=== PATIENT | male | born 1995 | race Caucasian/White ===

== ENCOUNTER 2017-02-12 14:30 | Day surgery (SDC) | payer MEDICAID, OTHER ==
[~2017-02-12] VITALS: Ht 180.3 cm; Wt 115.0 kg
[~2017-02-12 14:30] MED LIST: LACTATED RINGER'S 1000 ML INJ 1,000 ML IV ONE; ONDANSETRON HCL 4 MG/2 ML VIAL IV PUSH ONE; PROPOFOL 200 MG/20 ML AMP IV ONE
[2017-02-12 14:43] VITALS: BP 13/105; PULSE 99; RESP 22; TEMP 98.3; O2SAT 98
[2017-02-12] MEDS ORDERED: BUPIVACAINE HCL PF 0.5% 10 ML VIAL INFIL ONE (15:00)
[2017-02-12 15:04] VITALS: BP 150/82; PULSE 108; RESP 22; O2SAT 97
--- NOTE | 2017-02-12 15:22 | PD ---
HPI Chief Complaint: Injury Time Seen by Provider: 14:49 Travel History International Travel<30 days: No Contact w/Intl Traveler<30days: No Traveled to known affect area: No History of Present Illness HPI This patient was working with a circular saw and amputated his left index finger one hour ago. He has severe pain in the region. No alleviating factors. He received morphine in route which did not help his pain. Duration 1 hour PFSH Past Medical History ADHD: Yes (HX WITH HBS NO MEDS ) Autoimmune Disease: No Blood Disorders: No Anxiety: No Depression: No Cardiovascular Problems: No Diminished Hearing: No Gastrointestinal Disorders: No Genitourinary: No Musculoskeletal: No Neurologic: No Psychiatric: No Respiratory: No Immunizations Current: Yes Sickle Cell Disease: No Past Surgical History Abdominal Surgery: No Cardiac Surgery: No Ear Surgery: No Endocrine Surgery: No Eye Surgery: No Genitourinary Surgery: No Neurologic Surgery: No Oral Surgery: No Thoracic Surgery: No Other Surgery: No Social History Alcohol Use: No (denies) Tobacco Use: Yes (1/2 PDD) Substance Use: No (denies) Allergies-Medications (Allergen,Severity, Reaction): Coded Allergies: No Known Allergies (Verified , 02/12/17) Reported Meds & Prescriptions Reported Meds & Active Scripts Active No Active Prescriptions or Reported Medications Review of Systems General / Constitutional: No: Fever Eyes: No: Visual changes HENT: No: Headaches Cardiovascular: No: Chest Pain or Discomfort Respiratory: No: Shortness of Breath Gastrointestinal: No: Abdominal Pain Genitourinary: No: Dysuria Musculoskeletal: Positive: Pain Skin: No Rash Neurologic: No: Weakness Psychiatric: No: Depression Endocrine: No: Polydipsia Hematologic/Lymphatic: No: Easy Bruising Physical Exam Narrative GENERAL: Well-nourished, well-developed patient with left finger pain and anxiety . SKIN: Focused skin assessment reveals no rash and nodules. Skin is Warm and dry. HEAD: Atraumatic. Normocephalic. EYES: Pupils equal and round. No scleral icterus. No injection or drainage. ENT: No nasal bleeding or discharge. Mucous membranes pink and moist. NECK: Trachea midline. No JVD. CARDIOVASCULAR: Regular rate and rhythm. No murmur appreciated. RESPIRATORY: No accessory muscle use. Clear to auscultation. Breath sounds equal bilaterally. GASTROINTESTINAL: Abdomen soft, non-tender, nondistended. Hepatic and splenic margins not palpable. MUSCULOSKELETAL: Patient has traumatic Dictation of the left index finger. Chest proximal to the PIP joint. It is that an oblique angle with exposed bone. There is a arterial injury with some spurting of blood that is easily controlled with some pressure. No clubbing. No cyanosis. No edema. NEUROLOGICAL: Awake and alert. No obvious cranial nerve deficits. Motor grossly within normal limits. Normal speech. PSYCHIATRIC: Appropriate mood and affect; insight and judgment normal. Data Data Last Documented VS Vital Signs Date Time Temp Pulse Resp B/P Pulse Ox O2 Delivery O2 Flow Rate FiO2 02/12/17 15:04 108 22 97 Room Air 02/12/17 15:04 150/82 02/12/17 14:43 98.3 Orders Bupivacaine Pf 0.5% Inj (Marcaine Pf 0.5 (02/12/17 15:00) Finger (Fsp3vme) (02/12/17 ) Iv Access Insert/Monitor (02/12/17 15:02) Complete Blood Count With Diff (02/12/17 15:02) Basic Metabolic Panel (Bmp) (02/12/17 15:02) Prothrombin Time / Inr (Pt) (02/12/17 15:02) Act Partial Throm Time (Ptt) (02/12/17 15:02) Cefazolin 2 Gm Premix (Ancef 2 Gm Premix (02/12/17 15:30) Admit Order (Ed Use Only) (02/12/17 17:08) Labs Laboratory Tests Test 02/12/17 15:30 White Blood Count 10.3 TH/MM3 Red Blood Count 5.16 MIL/MM3 Hemoglobin 15.4 GM/DL Hematocrit 44.5 % Mean Corpuscular Volume 86.3 FL Mean Corpuscular Hemoglobin 29.8 PG Mean Corpuscular Hemoglobin 34.5 % Concent Red Cell Distribution Width 12.4 % Platelet Count 226 TH/MM3 Mean Platelet Volume 9.5 FL Neutrophils (%) (Auto) 73.9 % Lymphocytes (%) (Auto) 17.8 % Monocytes (%) (Auto) 7.1 % Eosinophils (%) (Auto) 0.8 % Basophils (%) (Auto) 0.4 % Neutrophils # (Auto) 7.6 TH/MM3 Lymphocytes # (Auto) 1.8 TH/MM3 Monocytes # (Auto) 0.7 TH/MM3 Eosinophils # (Auto) 0.1 TH/MM3 Basophils # (Auto) 0.0 TH/MM3 CBC Comment DIFF FINAL Differential Comment Prothrombin Time 10.0 SEC Prothromb Time International 0.9 RATIO Ratio Activated Partial 23.1 SEC Thromboplast Time Sodium Level 141 MEQ/L Potassium Level 3.8 MEQ/L Chloride Level 108 MEQ/L Carbon Dioxide Level 25.4 MEQ/L Anion Gap 8 MEQ/L Blood Urea Nitrogen 11 MG/DL Creatinine 0.82 MG/DL Estimat Glomerular Filtration 120 ML/MIN Rate Random Glucose 103 MG/DL Calcium Level 9.1 MG/DL [facility] Medical Decision Making Medical Screen Exam Complete: Yes Emergency Medical Condition: Yes Medical Record Reviewed: Yes Differential Diagnosis Amputation, laceration, soft tissue loss Narrative Course I have reviewed the patient's electronic medical record. IV placed CBC is normal Metabolic profile is normal Coagulation studies are normal This patient has a traumatic amputation left index finger at the PIP joint. I injected 3 cc of 0.5% Marcaine in a digital block to help control his pain. I reviewed his left hand x-ray showing a oblique fracture which is open I discussed with hand surgeon Dr. Aparicio who is now driving in to take care of this patient. I gave him 2 g IV Ancef Patient be taken to operating room and plan is for discharge later today Diagnosis Primary Impression: Amputation of finger of left hand Qualified Code: S68.119A - Amputation of finger of left hand, initial encounter Admitting Information Admitting Physician Requests: Admit Scripts No Active Prescriptions or Reported Meds Andrzej Brooks MD Feb 12, 2017 15:22
[2017-02-12] MEDS ORDERED: ceFAZolin 2 GM PREMIX 50 ML IV ONE (15:30)
--- NOTE | 2017-02-12 15:44 | RADRPT ---
EXAM DATE/TIME: 02/12/2017 15:11 [place] COMPARISON: No previous studies available for comparison. INDICATIONS : Left hand, 2nd digit laceration after cut with saw. MEDICAL HISTORY : None. SURGICAL HISTORY : None. ENCOUNTER: Initial ACUITY: 1 day PAIN SCORE: 10/10 LOCATION: Left hand, 2nd digit. FINDINGS: There is amputation of the 2nd digit at the level of the proximal metaphysis of the middle phalanx. There are several small ossific fragments at the site of the amputation. The proximal phalanx is int act. No metallic foreign bodies seen. There is prominent gauze about the 2nd digit. Angiocath in t he dorsum of the hand. CONCLUSION: Amputation 2nd digit at the level of the proximal metaphysis middle phalanx with some adjacent commin uted fragments. Chucky Tay MD on February 12, 2017 at 15:41 Board Certified Radiologist. This report was verified electronically.
[2017-02-12 15:47] LABS: AUTOMATED NEUTROPHIL # 7.6 TH/MM3 (1.8-7.7); BASOPHIL % 0.4 % (0.0-2.0); EOSINOPHIL # 0.1 TH/MM3 (0-0.4); EOSINOPHIL % 0.8 % (0.0-4.0); HEMATOCRIT 44.5 % (39.0-51.0); HEMO FLAGS DIFF FINAL; LYMPH % 17.8 % (9.0-44.0); LYMPHOCYTE # 1.8 TH/MM3 (1.0-4.8); MEAN CELL VOLUME 86.3 FL (80.0-100.0); MEAN CORPUSCULAR HEMOGLOBIN 29.8 PG (27.0-34.0); MEAN CORPUSCULAR HGB CONC 34.5 % (32.0-36.0); MONO % 7.1 % (0.0-8.0); NEUT % 73.9 % (16.0-70.0); PLATELET COUNT 226 TH/MM3 (150-450); RED BLOOD COUNT 5.16 MIL/MM3 (4.50-5.90); RED CELL DISTRIBUTION WIDTH 12.4 % (11.6-17.2); WHITE BLOOD COUNT 10.3 TH/MM3 (4.0-11.0)
[2017-02-12 15:59] LABS: APTT (PATIENT) 23.1 SEC (24.3-30.1); INTERNATIONAL NORMALIZED RATIO 0.9 RATIO
[2017-02-12 16:26] LABS: BICARBONATE 25.4 MEQ/L (21.0-32.0); POTASSIUM 3.8 MEQ/L (3.5-5.1)
[2017-02-12] MEDS ORDERED: LIDOCAINE HCL 2% 50 ML VIAL ONE (17:28)
[2017-02-12] MEDS ORDERED: BUPIVACAINE HCL PF 0.5% 30 ML VIAL ONE (17:28)
[2017-02-12] MEDS ORDERED: BACITRACIN TOP OINT 15 GM TUBE ONE (17:28)
--- NOTE | 2017-02-12 19:07 | MB ---
cc: NICHOLE ECKERT III, M.D. DATE OF CONSULTATION: 02/12/2017 REASON FOR CONSULTATION: HISTORY OF PRESENT ILLNESS: The patient is a 22 year-old right hand-dominant male was working with a circular saw and amputated his left index finger near the PIP joint at a significant angle. He does smoke. PAST MEDICAL HISTORY: ADHD. PAST SURGICAL HISTORY: Closed reduction of his left wrist. SOCIAL HISTORY: He does smoke cigarettes. ALLERGIES: NO KNOWN DRUG ALLERGIES. MEDICATIONS: Denied REVIEW OF SYSTEMS: The patient is not complaining of any fever or chills. He does not complain of any headaches, double or blurry vision. He does not complain of any chest pain or palpations. He does not complain of any coughing, wheezing or shortness of breath. He does not complain of any abdominal pain, nausea or vomiting. He does not complain of any burning, frequency or urgency with urination. He does not complain of any skin lesions, rashes or eruptions. He does not complain of any weakness or loss of balance. He does not complain of any anxiety, depression or any suicidal ideation. He does not complain of any night sweats, fever or chills. X-RAYS: X-rays performed in the hospital today and these reveal amputation of the second digit at the level of the proximal metaphysis middle phalanx with some adjacent comminuted fragments. PHYSICAL EXAMINATION: The patient is well developed, well nourished in mild distress. VITAL SIGNS: Temperature is 98.3, blood pressure 150/82, heart rate is 108, pulse ox 97% on room air. LABORATORY DATA: Hemoglobin 15.4, platelet count 226,000. Coags are normal. BUN and creatinine is 11 and 0.82. He is lying in bed comfortable with his left hand bandaged. EXTREMITIES: Examination of the left hand reveals an oblique amputation to the index finger and ulnar to radial direction with radial pulsatile digital vessel that is easily controlled. The wound is approximately 3 cm in length. There is another laceration on the dorsal aspect of the left middle finger and he does have sensation to all surfaces of the middle finger and is able to flex and extend. There is no bleeding there. Capillary refill is less than 2 seconds in all other fingertips. IMPRESSION: Left index finger traumatic partial amputation. Left middle finger laceration. PLAN: The plan is to go emergently to the operating room for washout, debridement and closure. I discussed at length with the patient and his brother how reimplantation is not possible, nor is it recommended and they appear to understand. We discussed this at length. He understands he will have a shorter finger and he is not supposed to return to work until he is cleared. They understand and agree, and wish to proceed. They request that we do so. MD DARYL Maradiaga III/EDGAR /4:37 PM /6:51 PM
--- NOTE | 2017-02-12 19:12 | HHI.PR ---
Immediate Post Op Note Procedure Date: Feb 12, 2017 Pre Op Diagnosis: (1) Amputation of finger of left hand (2) Laceration of finger of left hand Post Op Diagnosis: (1) Amputation of finger of left hand Surgeon: Cipriano Aparicio III Junior Systems Administrator(s): Talha Procedure: Left index finger revision amputation Left middle finger complex wound closure, 2cm Complications: 0 Anesthesia: General, Local Drains: None IVF Patient to: PACU Patient Condition: Good Cipriano Aparicio III, MD Feb 12, 2017 19:12
[2017-02-12] MEDS ORDERED: fentaNYL CITRATE 250 MCG/5 ML AMP ONE (19:32)
[2017-02-12] MEDS ORDERED: MORPHINE SULFATE 4 MG/ML INJ ONE ×2 (19:33→19:48)
[2017-02-12] MEDS ORDERED: CEPH-460 PO (19:35)
[2017-02-12] MEDS ORDERED: HYDR-3288 PO (19:35)
[2017-02-12] MEDS ORDERED: CIPROFLOXACIN 500 MG TAB PO ONE (19:45)
[2017-02-12 20:00] VITALS: BP 130/78; PULSE 86; RESP 21; TEMP 97.9; O2SAT 98
[2017-02-12] MEDS ORDERED: DO NOT ADM ANY ANTICOAGULANT DRUGS PRN (20:00)
[2017-02-12] MEDS ORDERED: ACETAMINOPHEN/HYDROcodone 325 MG/5 MG TAB ONE (20:25)
--- NOTE | 2017-02-14 10:49 | MP ---
cc: CIPRIANO APARICIO III, M.D. DATE OF SURGERY 02/12/2017 PREOPERATIVE DIAGNOSIS 1. Traumatic amputation left index finger 2. Left middle finger laceration PROCEDURE 1. Left index finger revision amputation with neurectomies and V-Y flaps 2. Exploration and debridement of necrotic skin and complex wound closure left middle finger. SURGEON Cipriano Aparicio III, MD PROCEDURE The patient was brought to the operating placed on the operating table after the correct site of surgery were verified members of each team room multiple times including the patient and myself and after adequate preoperative markings and preoperative written consent were verified with everyone and after adequate preop time-out was performed to everyone's satisfaction and after adequate general anesthesia had been achieved, the left upper extremity was prepped and draped in the traditional sterile surgical fashion. 0.5% plain Marcaine was infiltrated into the second web space as a digital block. Two liters worth of saline irrigation was then used to pulsatile irrigate out the index and the middle finger wounds along with debridement of devitalized bone from the middle phalangeal remnant. The pulsatile digital arterial bleeders were easily controlled with the bipolar electrocautery. The digital nerves stumps were then shortened as well away from the wounds. The middle phalangeal remnant was excised and was found to be approximately 1 cm in its greatest dimension, but it was fragmented. The articular surface of the proximal phalanx was then debrided of articular cartilage and then closure was done creating a flap with the radial skin and then tailored for contour and tensioned and closed with widely spaced 3-0 nylon sutures which left an overall very nice cosmetic result. The flaps and all skin surfaces were soft, pink and had brisk capillary refill of less than two seconds with no signs of congestion or cyanosis/ischemia. The middle finger was then addressed next. An exploration did not reveal a penetration to any vital structure. The devitalized edges were then debrided sharply. A thorough irrigation was performed again and then interrupted 3-0 nylon sutures were used to close the skin. The hand and arm were then thoroughly cleansed and dried. Betadine and Adaptic dressings were applied on top of the wounds. Capillary refill was less than two seconds and all fingertips and a bulky soft dressing was applied. The patient was awakened from anesthesia and transported to the Post Anesthesia Care Unit awake and in stable addition. Sponge, needle and instrument counts were correct at the end of the case as reported by the nurses in the room. MD DARYL Maradiaga III/HARMAN /7:42 PM /10:40 AM
[2017-03-05] MEDS ORDERED: ALPR.5 PO (14:51)
== END 2017-02-12 20:40 | disposition home or self-care (01) ==
LOC: NEPD 14:30 → CSDC 17:17
PROVIDERS: ATTEND Family Medicine
DX: S68.111A Complete traumatic metacarpophalangeal amputation of left index finger, initial encounter (principal); S61.213A Laceration without foreign body of left middle finger without damage to nail, initial encounter; F17.210 Nicotine dependence, cigarettes, uncomplicated; W31.2XXA Contact with powered woodworking and forming machines, initial encounter; Y99.0 Civilian activity done for income or pay
CPT/HCPCS: 01830; 13131; 26952; 64450; 73140; 80048; 85025; 85610; 85730; 88305; 96365; 99284; J0690; J2270; J2405; J3010; J7120; 88302

== ENCOUNTER 2017-08-03 12:34 | Emergency (ER) | payer OTHER ==
[~2017-08-03] VITALS: Ht 172.7 cm; Wt 110.0 kg
[~2017-08-03 12:34] MED LIST changes: +ALPR.5 PO; -LACTATED RINGER'S 1000 ML INJ 1,000 ML IV ONE; -ONDANSETRON HCL 4 MG/2 ML VIAL IV PUSH ONE; -PROPOFOL 200 MG/20 ML AMP IV ONE
[2017-08-03 12:36] VITALS: BP 136/86; PULSE 83; RESP 12; TEMP 98.6; O2SAT 96
[2017-08-03] MEDS ORDERED: BACT800T5 PO (13:00)
--- NOTE | 2017-08-03 13:00 | PD ---
HPI Chief Complaint: Lump, Cyst, Hernia Time Seen by Provider: 12:52 Travel History International Travel<30 days: No Contact w/Intl Traveler<30days: No Traveled to known affect area: No History of Present Illness HPI 22-year-old male presents to emergency Department with a tender lump to the anterior right lower abdomen which she states has been present for approximately one month. He states about a week ago and had some drainage in the shower "hard and yellow." Patient also has a small lump in the left axillary region. He denies fever, chills, or other symptoms. He states no further drainage, but he thought he should have it checked. Patient has no history of MRSA. He has no known drug allergies. PFSH Past Medical History ADHD: Yes (HX WITH HBS NO MEDS ) Autoimmune Disease: No Blood Disorders: No Anxiety: No Depression: No Cardiovascular Problems: No Diminished Hearing: No Gastrointestinal Disorders: No Genitourinary: No Musculoskeletal: No Neurologic: No Psychiatric: No Respiratory: No Immunizations Current: Yes Sickle Cell Disease: No Past Surgical History Abdominal Surgery: No Cardiac Surgery: No Ear Surgery: No Endocrine Surgery: No Eye Surgery: No Genitourinary Surgery: No Neurologic Surgery: No Oral Surgery: No Thoracic Surgery: No Other Surgery: No Social History Alcohol Use: No (denies) Tobacco Use: Yes (1/2 PDD) Substance Use: No (denies) Allergies-Medications (Allergen,Severity, Reaction): Coded Allergies: No Known Allergies (Verified , 03/17/17) Reported Meds & Prescriptions Reported Meds & Active Scripts Active Bactrim DS (Sulfamethoxazole-Trimethoprim) 800-160 Mg Tab 1 Tab PO BID Xanax (Alprazolam) 0.5 Mg Tab 0.5 Mg PO Q8H PRN Review of Systems Except as stated in HPI: all other systems reviewed are Neg General / Constitutional: No: Fever Eyes: No: Visual changes HENT: No: Headaches Cardiovascular: No: Chest Pain or Discomfort Respiratory: No: Shortness of Breath Gastrointestinal: No: Abdominal Pain Genitourinary: No: Dysuria Musculoskeletal: No: Pain Skin: Positive Lesions (see history present illness), No Rash Neurologic: No: Weakness Psychiatric: No: Depression Endocrine: No: Polydipsia Hematologic/Lymphatic: No: Easy Bruising Physical Exam Narrative GENERAL: Patient appears distress. SKIN: Warm and dry. Normal color. Normal turgor. Patient has a eyes the area to the right lower anterior abdomen just the appearance of a bleb, or blood blister with localized ecchymosis. He does not appear to be erythematous or an abscess. It is on the belt line. Patient also has small lesion in the left axilla which has no erythema, is mildly tender, and is more consistent with either a lipoma or small lymph node. No other significant findings are noted. HEAD: Atraumatic. Normocephalic. EYES: Pupils equal and round. No scleral icterus. No injection or drainage. ENT: No nasal bleeding or discharge. Mucous membranes pink and moist. Pharynx is clear. Airway is patent. NECK: Trachea midline. Supple nontender. CARDIOVASCULAR: Regular rate and rhythm. RESPIRATORY: No accessory muscle use. Clear to auscultation. Breath sounds equal bilaterally. GASTROINTESTINAL: Abdomen soft, non-tender, nondistended. Hepatic and splenic margins not palpable. No point tenderness or rebound. Bowel sounds are normal throughout. MUSCULOSKELETAL: Extremities without clubbing, cyanosis, or edema. No obvious deformities. NEUROLOGICAL: Awake and alert. No obvious cranial nerve deficits. Motor grossly within normal limits. Five out of 5 muscle strength in the arms and legs. Normal speech. PSYCHIATRIC: Appropriate mood and affect; insight and judgment normal. Data Data Last Documented VS Vital Signs Date Time Temp Pulse Resp B/P (MAP) Pulse Ox O2 Delivery O2 Flow Rate FiO2 08/03/17 12:36 98.6 83 12 136/86 (103) 96 MDM Medical Decision Making Medical Screen Exam Complete: Yes Emergency Medical Condition: Yes Differential Diagnosis Folliculitis. Cellulitis. Venous bleb. Narrative Course Patient is given Bactrim DS twice a day 7 days. Patient is to avoid pressure or irritation to the area. Patient take Tylenol or ibuprofen as needed. Patient recommended to follow up with local primary care physician as needed. Diagnosis Primary Impression: Folliculitis keloidalis Referrals: [facility] Patient Instructions: Folliculitis (ED), General Instructions Additional Instructions: Patient is given Bactrim DS twice a day 7 days. Patient is to avoid pressure or irritation to the area. Patient take Tylenol or ibuprofen as needed. Patient recommended to follow up with local primary care physician as needed. Med/Other Pt SpecificInfo: Prescription(s) given Scripts Sulfamethoxazole-Trimethoprim (Bactrim DS) 800-160 Mg Tab 1 TAB PO BID for Infection, #14 TAB 0 Refills Prov: Natty Lara MD 08/03/17 Disposition: 01 DISCHARGE HOME Condition: Stable Jaycob Gifford Aug 03, 2017 13:00
== END 2017-08-03 13:17 | disposition home or self-care (01) ==
LOC: NEPK 12:34
DX: L73.0 Acne keloid (principal)
CPT/HCPCS: 99283

== ENCOUNTER 2017-12-30 11:56 | Emergency (ER) | payer SELFPAY ==
[~2017-12-30 11:56] MED LIST changes: +BACT800T5 PO
[2017-12-30 12:29] VITALS: BP 144/67; PULSE 95; RESP 18; TEMP 98.9; O2SAT 98
--- NOTE | 2017-12-30 14:34 | PD ---
HPI Chief Complaint: Skin Problem Time Seen by Provider: 14:22 Travel History International Travel<30 days: No Contact w/Intl Traveler<30days: No Traveled to known affect area: No History of Present Illness HPI Patient comes emergency department complaining of possible abscess to the left medial thigh. Patient reports initially popped up approximately a month ago. Patient reports he treated himself using a needle that allowed it to drain pus and then allowed it to resolve. Patient reports over the past 2 days it has reemerged and come back even larger. Patient describes pain as a pressure burning-like sensation is worse to palpation and when his thighs rub together. 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 Denies any radiation of pain. Denies any fevers. Patient reports he has had similar in the past and was placed on antibiotics. Denies any history of IV drug use. PFSH Past Medical History ADHD: Yes (HX WITH HBS NO MEDS ) Autoimmune Disease: No Blood Disorders: No Anxiety: No Depression: No Cardiovascular Problems: No Diminished Hearing: No Gastrointestinal Disorders: No Genitourinary: No Musculoskeletal: No Neurologic: No Psychiatric: No Respiratory: No Immunizations Current: Yes Sickle Cell Disease: No Past Surgical History Abdominal Surgery: No Cardiac Surgery: No Ear Surgery: No Endocrine Surgery: No Eye Surgery: No Genitourinary Surgery: No Neurologic Surgery: No Oral Surgery: No Thoracic Surgery: No Other Surgery: No Social History Alcohol Use: No (denies) Tobacco Use: Yes (1/2 PDD) Substance Use: No (denies) Allergies-Medications (Allergen,Severity, Reaction): Coded Allergies: No Known Allergies (Verified , 03/17/17) Reported Meds & Prescriptions Reported Meds & Active Scripts Active Clindamycin (Clindamycin HCl) 150 Mg Cap 2 Cap PO Q6H 10 Days Bactrim DS (Sulfamethoxazole-Trimethoprim) 800-160 Mg Tab 1 Tab PO BID Xanax (Alprazolam) 0.5 Mg Tab 0.5 Mg PO Q8H PRN Review of Systems Except as stated in HPI: all other systems reviewed are Neg Physical Exam Narrative GENERAL: Well-developed, overly nourished, in no acute distress, and non-ill appearing. SKIN: Focused skin assessment warm and dry. Small tender fluctuant lesion noted over the left medial thigh is mildly erythematous. No crepitus. No drainage. No significant surrounding cellulitis. HEAD: Atraumatic. Normocephalic. EYES: Pupils equal and round. EOMI. No scleral icterus. No injection or drainage. ENT: No nasal bleeding or discharge. Mucous membranes pink and moist. NECK: Trachea midline. Supple. No nuclear rigidity. RESPIRATORY: No accessory muscle use. No respiratory distress. MUSCULOSKELETAL: No obvious deformities. No clubbing. No cyanosis. No edema. Full range of motion. NEUROLOGICAL: Awake and alert. No obvious cranial nerve deficits. Motor grossly within normal limits. Normal speech. PSYCHIATRIC: Appropriate mood and affect; insight and judgment normal. Data Data Last Documented VS Vital Signs Date Time Temp Pulse Resp B/P (MAP) Pulse Ox O2 Delivery O2 Flow Rate FiO2 12/30/17 12:29 98.9 95 18 144/67 (92) 98 Orders Orders Lidocai-Epi 1%-1:100,000 Inj (Xylocaine- (12/30/17 14:45) Wound Culture And Gram Stain (12/30/17 14:34) Ed Discharge Order (12/30/17 14:55) MDM Medical Decision Making Medical Screen Exam Complete: Yes Emergency Medical Condition: Yes Differential Diagnosis Abscess, cellulitis, folliculitis, blister, sebaceous cyst Narrative Course The patient has no evidence of significant cellulitis. There is no evidence of necrotizing fasciitis/ Rhonda at this time. The patient will be discharged on antibiotics. The patient was given signs and symptoms warnings for worsening infection, such as spreading of redness, increasing pain, and/or swelling, associated heat, or fever or feels worse, and instructed to return immediately if these signs or symptoms worsen. The patient is to return in 2 days for recheck. Sooner if worsens or as needed. The patient agrees with plan. Patient in no obvious distress upon re-evaluation. Patient was asked if they wanted to speak to my attending, which the patient did not wish to do at this time. Any questions/concerns in reference to patient diagnosis/condition discussed and clarified prior to patient's discharge. Reinforced sheer importance of close follow up with patient's primary physician or primary care clinic. Instructed patient to return to ED immediately, if symptoms return/ worsen. Patient showed understanding of above instructions. Further instructions and recommendations were detailed in discharge paperwork. Patient ambulated without difficulty out of ED at discharge. Procedures Procedure Narrative INCISION AND DRAINAGE OF ABSCESS: Verbal consent was obtained. The area was prepped. A subcutaneous wheal of 1% Xylocaine with epi with a total number 2 mL was used to anesthetize the area. The area was properly anesthetized. A number 11 scalpel was used to make a half-cm incision across the area of the abscess. The abscess was drained. Half inch iodoform packing was placed in the wound. Sterile dressing applied by nurse. Patient tolerated procedure well. Patient advised to return here in 2 days to have packing removed and wound rechecked. Patient verbalized understanding. Diagnosis Primary Impression: Abscess Referrals: [facility] Patient Instructions: Abscess (GEN), Abscess Incision and Drainage (DC), General Instructions Additional Instructions: Follow-up with your primary care physician or return here in 2 days for recheck. Take all medication as prescribed. Apply warm compresses to affected area multiple times throughout the day to facilitate drainage. Use over-the- counter Tylenol and ibuprofen as needed for pain. Follow instructions on the packaging. Return to the emergency department if symptoms get worse. Med/Other Pt SpecificInfo: Prescription(s) given Scripts Clindamycin (Clindamycin) 150 Mg Cap 2 CAP PO Q6H for Infection for 10 Days, #80 CAP 0 Refills Prov: Jesus Arrington MD 12/30/17 Disposition: 01 DISCHARGE HOME Condition: Stable Uriah Martinez Dec 30, 2017 14:34
[2017-12-30] MEDS ORDERED: LIDOCAINE 1%/EPINEPHrine 1:100,000 SOLN 50 ML VIAL INFIL ONE (14:45)
[2017-12-30] MEDS ORDERED: BACT800T5 PO (14:48)
[2017-12-30] MEDS ORDERED: CLIN150C14 PO (15:12)
== END 2017-12-30 15:24 | disposition home or self-care (01) ==
LOC: NEPK 11:56
DX: L02.416 Cutaneous abscess of left lower limb (principal); F17.200 Nicotine dependence, unspecified, uncomplicated
CPT/HCPCS: 10061; 86403; 87070; 87205

== ENCOUNTER 2018-01-23 14:02 | Emergency (ER) | payer SELFPAY ==
[~2018-01-23] VITALS: Ht 172.7 cm; Wt 117.0 kg
[~2018-01-23 14:02] MED LIST changes: +CLIN150C14 PO
[2018-01-23 14:15] VITALS: BP 159/91; PULSE 74; RESP 16; TEMP 98.1; O2SAT 98
[2018-01-23] MEDS ORDERED: CLIN300C5 PO (14:56)
[2018-01-23] MEDS ORDERED: IBUP1TAB7 PO (14:56)
--- NOTE | 2018-01-23 14:57 | PD ---
HPI Chief Complaint: Oral / Dental Pain or Problem Time Seen by Provider: 14:30 Travel History International Travel<30 days: No Contact w/Intl Traveler<30days: No Traveled to known affect area: No History of Present Illness HPI 22-year-old male here with left upper dental pain and gum swelling is 3 days. He reports he has a decayed and fractured tooth at the site of the pain. No difficulty swallowing. No fever or chills. Pain is worse with eating, drinking and chewing. No improvement with OTC Tylenol or ibuprofen PFSH Past Medical History ADHD: Yes (HX WITH HBS NO MEDS ) Autoimmune Disease: No Blood Disorders: No Anxiety: No Depression: No Cardiovascular Problems: No Diminished Hearing: No Gastrointestinal Disorders: No Genitourinary: No Heparin Induced Thrombocytopen: No Musculoskeletal: No Neurologic: No Psychiatric: No Respiratory: No Immunizations Current: Yes Sickle Cell Disease: No Influenza Vaccination: No Past Surgical History Abdominal Surgery: No Cardiac Surgery: No Ear Surgery: No Endocrine Surgery: No Eye Surgery: No Genitourinary Surgery: No Neurologic Surgery: No Oral Surgery: No Thoracic Surgery: No Other Surgery: No Social History Alcohol Use: No (denies) Tobacco Use: Yes (1/2 PDD) Substance Use: No (denies) Allergies-Medications (Allergen,Severity, Reaction): Coded Allergies: No Known Allergies (Verified Adverse Reaction, Unknown, 01/23/18) Reported Meds & Prescriptions Reported Meds & Active Scripts Active No Active Prescriptions or Reported Medications Review of Systems Except as stated in HPI: all other systems reviewed are Neg General / Constitutional: No: Fever Eyes: No: Visual changes HENT: Positive: Dental Difficulties Cardiovascular: No: Chest Pain or Discomfort Respiratory: No: Shortness of Breath Gastrointestinal: No: Abdominal Pain Physical Exam Narrative GENERAL: Alert well-appearing 22-year-old male SKIN: Warm and dry HEAD: Normocephalic. EYES: No scleral icterus. No injection or drainage. MOUTH: Decayed and fractured left second bicuspid with surrounding gum erythema and swelling. The area is tender. No swelling to the floor the mouth. Uvula is midline. Airway is patent. NECK: Supple, trachea midline. No lymphadenopathy. Data Data Last Documented VS Vital Signs Date Time Temp Pulse Resp B/P (MAP) Pulse Ox O2 Delivery O2 Flow Rate FiO2 01/23/18 14:15 98.1 74 16 159/91 (848) 36 Orders Orders Ketorolac Inj (Toradol Inj) (01/23/18 15:00) MDM Medical Decision Making Medical Screen Exam Complete: Yes Emergency Medical Condition: Yes Differential Diagnosis Dental fracture, dental abscess, dental caries Narrative Course 22-year-old male here with dental pain. Patient is well-appearing. He was given a shot of Toradol. Allergies to Keflex and penicillin. prescribed clindamycin and instructed to follow-up with dentist Diagnosis Primary Impression: Pain, dental Referrals: Dentist Additional Instructions: Follow-up with dentist. Take medications as prescribed Scripts Ibuprofen (Ibuprofen) 800 Mg Tab 800 MG PO Q6HR Y for PAIN, #40 TAB 0 Refills Prov: Richa Marsh 01/23/18 Clindamycin (Clindamycin) 300 Mg Cap 300 MG PO TID for Infection for 7 Days, CAP 0 Refills Prov: Richa Marsh 01/23/18 Disposition: 01 DISCHARGE HOME Condition: Stable Richa Marsh Jan 23, 2018 14:57
[2018-01-23] MEDS ORDERED: KETOROLAC TROMETHAMINE 60 MG/2 ML (IM) VIAL IM ONE (15:00)
== END 2018-01-23 15:05 | disposition home or self-care (01) ==
LOC: PHEFT 14:02
DX: K08.89 Other specified disorders of teeth and supporting structures (principal); F17.200 Nicotine dependence, unspecified, uncomplicated; F90.9 Attention-deficit hyperactivity disorder, unspecified type; X58.XXXA Exposure to other specified factors, initial encounter
CPT/HCPCS: 96372; 99283; J1885